=== PATIENT | female | born 1930 | race Hispanic/Latino ===

== ENCOUNTER 2016-12-21 09:15 | Emergency (ER) | payer OTHER, MEDICARE ==
[~2016-12-21 09:15] MED LIST: ALBUTEROL2.5 MG/3 M INH/SOL; AMLODIPINE BESY10 M1 PO; BACTRIM DS 8001 TAB PO; BACTROBAN OINT.22 GM TOP; COUMADIN 5 MG TA5 MG PO; HYDRODIURIL 2525 MG PO; LEVEMIR FL100 UNIT/1 SC; MIRALAX17 GM PO; MOXIFLOXACIN H400 M1 PO; NOVAPLUS FE50 MCG/HR TOP; NOVOLOG100 UNIT/2 SC; NYSTOP100000 U/G TOP; OSTEO BI-FLEX1 EACH PO; PERCOCET 325 MG1 TAB PO; POTASSIUM CHLO10 ME1 PO; PRILOSEC40 MG PO; TRAZODONE50 MG PO; VITAMIN D31000 UNI1 PO; ZOFRAN 8MG8 MG PO; ZOFRAN ODT4 MG SL; ZYRTEC10 M3 PO
--- NOTE | 2016-12-21 09:19 | ED GI/GU/ABDOMINAL COMPLAINT ---
History of Present Illness General Chief Complaint: Abdominal Pain/Flank Pain Stated Complaint: BIBA, ABD PAIN X 4 DAYS Source: patient, family Exam Limitations: no limitations Allergies Coded Allergies: No Known Allergies (12/21/16) Reconcile Medications Albuterol Sulfate 3 ML NEB 1 Vial PO TID-4XDAILY DYSPNEA (Reported) Amlodipine Besylate (Amlodipine) 10 MG TABLET 1 TAB PO DAILY HEART/BP ( Reported) Cetirizine Hydrochloride (Zyrtec) 10 MG TAB 1 TAB PO DAILY SUPPLEMENT ( Reported) Cholecalciferol (Vitamin D3) 1,000 UNIT TABLET 1,000 IU PO DAILY VITAMIN D SUPPLEMET (Reported) Chondroitin Sulfate/Glucosam (Osteo Bi-Flex 200 MG-250 MG) 1 TAB TAB 1 TAB PO DAILY SUPPLEMENT (Reported) Fentanyl 50 MCG/HOUR PATCH.TD72 1 PAT TOP Q3D PAIN (Reported) Hydrochlorothiazide (Hydrodiuril 25 MG Tab) 25 MG TABLET 1 TAB PO DAILY DIURETIC (Reported) Insulin Aspart, Recombinant (Novolog) 100 U/ML SHILO 0 UNITS SC TIDAC GLUCOSE CONTROL (Reported) BLOOD SUGAR # OF UNITS < 80 NONE 80-150 NONE 151-200 4 UNITS 201-250 6 UNITS 251-300 8 UNITS 301-350 10 UNITS 351-400 12 UNITS >400 14 UNITS and call MD Insulin Detemir (Levemir Flextouch) 100 UNIT/ML (3 ML) INSULN.PEN 14 UNITS SC BID DIABETES (Reported) MOXIFLOXACIN HCL (Moxifloxacin HCl) 400 MG TABLET 1 TAB PO DAILY BRONCHITIS Nitrofurantoin Monohyd/M-Cryst (Macrobid 100 MG Capsule) 100 MG CAPSULE 1 CAP PO BID uti with food Nystatin (Nystop) 100,000 UNIT/GRAM POWDER 1 RAZIA TOP AD ANTI-FUNGAL (Reported ) Omeprazole (Prilosec) 40 MG ECC 1 CAP PO DAILY AC GI (Reported) Ondansetron (Zofran 8MG) 8 MG TABLET 1 TAB PO Q8 N/V (Reported) Ondansetron (Zofran Odt) 4 MG TAB.RAPDIS 1 TAB SL Q8HR PRN NAUSEA OXYCODONE HCL/ACETAMINOPHEN (Percocet 10-325 MG Tablet) 325 MG/10 MG TAB 1 TAB PO TID PAIN (Reported) Polyethylene Glycol 3350 (Miralax) 17 GRAM/DOSE POWDER 17 GM PO DAILY CONSTIPATION (Reported) mix with water, juice, soda, coffee or tea Potassium Chloride 10 MEQ TABLET.ER 1 TAB PO DAILY SUPPLEMENT (Reported) TRAZODONE HCL (Trazodone HCl) 50 MG TABLET 1 TAB PO QPM SLEEP (Reported) Warfarin Sodium (Coumadin) 5 MG TABLET 1 TAB PO AD BLOOD THINNER (Reported) Triage Nurses Notes Reviewed? yes ? N Is pt currently ? No Onset: Gradual Duration: worse persistent since (OVER A WEEK) Timing: recent history Quality/Severity: cramping, moderate Location: epigastric Radiation: no radiation Activities at Onset: none Prior Abdominal Problems: similar symptoms Past Sexual History: Unobtainable at this time Sexually Active: No No Modifying Factors: none HPI: Patient is an 86-year-old female presenting to the emergency department with chief complaint of worsening abdominal pain over the past 1 week. Pain is located in the upper part of the abdomen. It's been constant. Denies any nausea or vomiting. Per the family member she always has a decreased appetite. She's been drinking fluids. Her last bowel movement was yesterday but she feels constipated. Denies any fevers or chills. No sick contacts. Denies recent antibiotic use. Per the family member she is bedbound and does not ambulate. She gets transferred from the bed to a wheelchair at times. Denies any urinary frequency or dysuria. No hematuria. The sister is unsure exactly what medical problems the patient has. Unsure exactly what the patient takes daily for medications. Also reporting a cough. (CARLOS ENRIQUE ONTIVEROS,STEFANY) Vital Signs & Intake/Output Vital Signs & Intake/Output Vital Signs Date Time Temp Pulse Resp B/P B/P Pulse O2 O2 Flow FiO2 Mean Ox Delivery Rate 12/21 1517 97.0 80 15 169/70 96 Nasal 2.0L Cannula 12/21 1423 97.7 84 15 189/73 94 Nasal 2.0L Cannula 12/21 1227 97.2 85 18 158/69 98 Nasal 3.0L Cannula 12/21 1004 Nasal 2.0L Cannula 12/21 0920 97.4 89 15 169/67 90 Room Air Room Air Past History Travel History Traveled to [place] past 21 day No Medical History Any Pertinent Medical History? see below for history Cardiovascular: hypertension Respiratory: asthma Musculoskeletal: osteoarthritis Endocrine: diabetes Blood Disorders: DVT History of MRSA: No History of VRE: No History of CDIFF: No Influenza Vaccine: 05/02/13 Surgical History Surgical History: non-contributory Psychosocial History Who do you live with Spouse Services at Home Home Health Aide, Occupational Therapy, Physical Therapy What is your primary language Upper Sorbian Family History Family History, If Any: Relation not specified for: No family history of disorders Hx Contributory? No (STEFANY LEUNG) Review of Systems Review of Systems Constitutional: Reports: no symptoms. Comments Review of systems: See HPI, All other systems negative. Constitutional, no chills fever or weight loss HEENT: No visual changes no sore throat no congestion Cardiovascular: No chest pain ,palpitation , orthopnea or ankle swelling Skin, no jaundice no rashes Respiratory: No dyspnea cough sputum or hemoptysis GI: No nausea no vomiting : No dysuria No hematuria Muscle skeletal: no back pain, no neck pain, Neurologic: No numbness no confusion Psych: No stress anxiety or depression,. Heme/endocrine: No bruising no bleeding no polyuria or polydipsia Immunology: No splenectomy or history of AIDS (STEFANY LEUNG) Physical Exam Physical Exam General Appearance: well developed/nourished, no apparent distress, alert, awake , comfortable Gastrointestinal: normal bowel sounds, soft, tenderness Comments: Well-developed well-nourished person in no acute distress HEENT: Pupils equally round and reactive to light and accommodation. Nose is atraumatic. External auditory canal and Tympanic membranes clear. Pharynx normal. No swelling or edema. Moist oral mucosa. Neck: Supple, no lymphadenopathy, normal range of motion without pain or tenderness Back: Nontender, no CVA tenderness. Cardiovascular: Regular rate and rhythms no murmurs rubs or gallops, normal JVP Respiratory: Chest nontender. No respiratory distress.breath sounds are diminished to auscultation bilaterally at the bases. Abdomen: Soft, obese, tender to palpation in the upper right and upper left quadrant and epigastric region, no rebound or guarding ,nondistended, no appreciable organomegaly. Normal bowel sounds. No ascites Extremity: No edema, nontender to palpation over bilateral calves. Pedal pulses are 2+ bilaterally. Neuro: Alert oriented x3 Skin: No appreciable rash on exposed skin, skin is warm and dry. Psych: Mood and affect is normal, memory and judgment is normal. Core Measures ACS in differential dx? Yes Severe Sepsis Present: No Septic Shock Present: No (CARLOS ENRIQUE ONTIVEROS,STEFANY) Progress Differential Diagnosis: pancreatitis, ACS, gastritis, gastroenteritis, constipation, urinary tract infection Diagnostic Imaging: Viewed by Me: CT Scan. Discussed w/RAD: CT Scan. Radiology Impression: PATIENT: KEVIN PALOMO PRESENT AGE: 86 PATIENT ACCOUNT NO: [id number] : 29 LOCATION: ER ORDERING PHYSICIAN: STEFANY ONTIVEROS SERVICE DATE: 12/21/16 EXAM TYPE: CAT - CT ABD & PELVIS W IV CONTRAST EXAMINATION: CT ABDOMEN AND PELVIS WITH CONTRAST CLINICAL INFORMATION: Abdominal pain. Constipation. Rule out small bowel obstruction. COMPARISON: 11/17/2014 TECHNIQUE: Multidetector volumetric imaging was performed of the abdomen and pelvis before and after the IV administration of 95 mL of Optiray 320 intravenous contrast. Sagittal and coronal reformatted images were obtained on the technologist's workstation. DLP: 824 mGy-cm FINDINGS : LUNG BASES: There is mild dependent atelectasis. Mild bronchiectasis is present in the right lower lobe. Small pericardial effusion. LIVER, GALLBLADDER, AND BILIARY TREE: Dystrophic calcifications within the liver near the falciform ligament may correspond to prior granulomatous disease. No suspicious hepatic lesions. Liver is normal in size and contour. Cholelithiasis is present in the gallbladder. The gallbladder is otherwise unremarkable without gallbladder wall thickening, or obvious pericholecystic inflammatory changes. PANCREAS: Mildly atrophic. No acute findings. SPLEEN: Unremarkable. ADRENAL GLANDS: Unremarkable KIDNEYS AND URETERS: Multiple bilateral exophytic water density renal cysts are present. No suspicious soft tissue nodularity is identified. There are a few smaller subcentimeter cysts which are too small to characterize. Two 2 mm calculi are present in the right kidney. No hydronephrosis. No left-sided renal calculi. Ureters are normal in appearance without hydroureter or ureterolithiasis. BLADDER: Unremarkable. GASTROINTESTINAL TRACT: Stomach, small bowel, and colon are normal in caliber. No bowel wall thickening is identified. There are a few colonic diverticula. No acute diverticulitis. Appendix is not seen, though there are no secondary findings of acute appendicitis. No intraperitoneal free fluid or free air. Stool volume is normal. A rounded 2 cm nodular fat density structure with a thin peripheral rim within the right anterior intraperitoneal fat on image 64/97 of series 2 likely corresponds to a previously focus of infarcted omental fat. ABDOMINAL WALL: Tiny fat-containing umbilical hernia. No bowel involvement. Findings of prior ventral abdominal incision are present anteriorly. LYMPH NODES: Normal. VASCULAR: Calcific atherosclerosis is present in the abdominal aorta and its branch vessels, most notably at the ostia of the branch vessels. No aneurysmal dilatation. PELVIC VISCERA: Uterus and ovaries are surgically absent. OSSEOUS STRUCTURES: Moderate multilevel degenerative disc disease and facet arthropathy are present in the lumbar spine. No acute osseous abnormalities are identified. IMPRESSION: 1. No acute intra-abdominal or intrapelvic abnormalities. No evidence of small bowel obstruction. Stool volume is normal. 2. A few colonic diverticula. No acute diverticulitis. 3. Cholelithiasis. No CT findings of acute cholecystitis. 4. Right nephrolithiasis. No evidence of obstructive uropathy. 5. 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 CXR Impression: PATIENT: KEVIN PALOMO PRESENT AGE: 86 PATIENT ACCOUNT NO: [id number] : 29 LOCATION: [facility] ORDERING PHYSICIAN: STEFANY ONTIVEROS SERVICE DATE: 12/21/16 EXAM TYPE: RAD - XRY- PORTABLE CHEST XRAY EXAMINATION: XR PORTABLE CHEST CLINICAL INFORMATION: Wheezing. Evaluate for pneumonia. COMPARISON: CXR from 12/27/2013. TECHNIQUE: Portable AP view of the chest was obtained. FINDINGS: Patient has a large body habitus and lungs are hypoinflated. As a result, the lower lobe/bases are suboptimally evaluated. There is no evidence of pulmonary edema or pleural effusion. No overt consolidation. Cardiac silhouette is chronically enlarged and central pulmonary vessels are prominent but unchanged compared to 12/06/2014. The visualized bones are intact. IMPRESSION: 1. Evaluation of the lungs is suboptimal due to patient body habitus and hypoinflation. No overt pneumonia. No pleural effusion. 2. Stable cardiomegaly. Initial ED EKG: sinus rhythm at 90 bpm with atrial premature complex Comments: Patient family members informed of all lab results and imaging study results patient has a small UTI. Patient seen and evaluated by Dr. menon agrees with plan. Patient will be transferred back home via ambulance. (CARLOS ENRIQUE ONTIVEROS,STEFANY) Plan of Care: Orders Procedure Date/time Status Add-on Test (ER Only) 12/21 1326 Active TROPONIN LEVEL 12/21 105 Complete Telemetry/Coal Chemist 12/21 918 Active URINALYSIS 12/21 918 Complete LIPASE 12/21 918 Complete LACTIC ACID 12/21 918 Complete COMPREHENSIVE METABOLIC PANEL 12/21 918 Complete CBC WITHOUT DIFFERENTIAL 12/21 918 Complete AMYLASE 12/21 918 Complete EKG 12/21 918 Active Laboratory Tests 12/21/16 1219: Lactic Acid Cancelled 12/21/16 1110: Urine Color YEL, Urine Clarity HAZY H, Urine pH 7.5, Ur Specific [place] 1.015, Urine Protein 30 H, Urine Ketones NEG, Urine Nitrite NEG, Urine Bilirubin NEG, Urine Urobilinogen 0.2, Ur Leukocyte Esterase SMALL H, Ur Microscopic SEDIMENT EXAMINED, Urine RBC 1-3, Urine WBC 15-25 H, Ur Epithelial Cells FEW, Urine Bacteria FEW H, Hyaline Casts RARE H, Urine Mucus RARE, Micro UA Comment MORE INFO: H, Urine Hemoglobin TRACE-INTACT, Urine Glucose NEG 12/21/16 1057: Anion Gap 8, Estimated GFR > 60, BUN/Creatinine Ratio 14.3, Glucose 189 H, Lactic Acid 0.8, Calcium 8.8, Total Bilirubin 1.1, AST 18, ALT 28, Alkaline Phosphatase 54, Troponin I < 0.01, Total Protein 6.8, Albumin 3.8, Globulin 3.0, Albumin/Globulin Ratio 1.3, Amylase < 30 L, Lipase 20 L 12/21/16 0930: CBC w Diff NO MAN DIFF REQ, RBC 4.14 L, MCV 85.0, MCH 28.5, RDW 22.1 H, MPV 9.5, Gran % 73.7, Lymphocytes % 20.9, Monocytes % 4.0, Eosinophils % 1.1, Basophils % 0.3, Absolute Granulocytes 7.0 H, Absolute Lymphocytes 2.0, Absolute Monocytes 0.4, Absolute Eosinophils 0.1, Absolute Basophils 0, PUBS MCHC 33.5 Departure Departure Time of Disposition: 1443 Disposition: HOME OR SELF CARE Condition: Stable Clinical Impression Primary Impression: Abdominal pain Qualifiers: Abdominal location: generalized Qualified Code: R10.84 - Generalized abdominal pain Secondary Impressions: Cough Urinary tract infection Qualifiers: Urinary tract infection type: site unspecified Hematuria presence: without hematuria Qualified Code: N39.0 - Urinary tract infection, site not specified Referrals: ALYCIA KEITH,ADRIANA Medrano (PCP/Family) Additional Instructions: Follow-up with your primary care physician call to make an appointment. Increase fluids. Continue daily medications as previously prescribed. Take previously prescribed to help with urinary tract infection. Departure Forms: Customer Survey General Discharge Information Prescriptions: Current Visit Scripts Nitrofurantoin Monohyd/M-Cryst (Macrobid 100 MG Capsule) 1 CAP PO BID #14 CAP with food (STEFANY LEUNG) PA/KLYSTROM TUBE TESTER Co-Sign Statement Statement: ED Attending supervision documentation- [X] I saw and evaluated the patient. I have also reviewed all the pertinent lab results and diagnostic results. I agree with the findings and the plan of care as documented in the PA's/KLYSTROM TUBE TESTER's documentation. [] I have reviewed the ED Record and agree with the PA's/KLYSTROM TUBE TESTER's documentation. [] Additions or exceptions (if any) to the PAs/KLYSTROM TUBE TESTER's note and plan are summarized below: [] (EZEQUIEL KEITH,BERTO Peralta)
[2016-12-21 09:48] LABS: ABSOLUTE BASOPHIL COUNT 0 /CUMM (0.0-0.2); ABSOLUTE EOSINOPHIL COUNT 0.1 /CUMM (0.0-0.7); ABSOLUTE MONOCYTE COUNT 0.4 /CUMM (0.10-0.60); BASOPHIL % 0.3 % (0.0-2.0); EOSINOPHIL % 1.1 % (0-5); GRANULOCYTE % 73.7 % (42.2-75.2); HEMATOCRIT 35.2 % (37-47); MEAN CORPUSCULAR HGB 28.5 PG (27.0-31.0); MEAN CORPUSCULAR HGB CONC 33.5 G/DL (33.0-37.0); MEAN PLATELET VOLUME 9.5 FL (7.4-10.4); PLATELET COUNT 266 /CUMM (130-400); RBC DISTRIBUTION WIDTH 22.1 % (11.5-14.5); RED BLOOD CELL CT 4.14 /CUMM (4.20-5.40); WHITE BLOOD CELL COUNT 9.6 /CUMM (4.8-10.8)
--- NOTE | 2016-12-21 11:12 | RADIOLOGY REPORT ---
EXAMINATION: XR PORTABLE CHEST CLINICAL INFORMATION: Wheezing. Evaluate for pneumonia. COMPARISON: CXR from 12/27/2013. TECHNIQUE: Portable AP view of the chest was obtained. FINDINGS: Patient has a large body habitus and lungs are hypoinflated. As a result, the lower lobe/bases are suboptimally evaluated. There is no evidence of pulmonary edema or pleural effusion. No overt consolidation. Cardiac silhouette is chronically enlarged and central pulmonary vessels are prominent but unchanged compared to 12/06/2014. The visualized bones are intact. IMPRESSION: 1. Evaluation of the lungs is suboptimal due to patient body habitus and hypoinflation. No overt pneumonia. No pleural effusion. 2. Stable cardiomegaly.
--- NOTE | 2016-12-21 13:11 | CT SCAN REPORT ---
EXAMINATION: CT ABDOMEN AND PELVIS WITH CONTRAST CLINICAL INFORMATION: Abdominal pain. Constipation. Rule out small bowel obstruction. COMPARISON: 11/17/2014 TECHNIQUE: Multidetector volumetric imaging was performed of the abdomen and pelvis before and after the IV administration of 95 mL of Optiray 320 intravenous contrast. Sagittal and coronal reformatted images were obtained on the technologist's workstation. DLP: 824 mGy-cm FINDINGS: LUNG BASES: There is mild dependent atelectasis. Mild bronchiectasis is present in the right lower lobe. Small pericardial effusion. LIVER, GALLBLADDER, AND BILIARY TREE: Dystrophic calcifications within the liver near the falciform ligament may correspond to prior granulomatous disease. No suspicious hepatic lesions. Liver is normal in size and contour. Cholelithiasis is present in the gallbladder. The gallbladder is otherwise unremarkable without gallbladder wall thickening, or obvious pericholecystic inflammatory changes. PANCREAS: Mildly atrophic. No acute findings. SPLEEN: Unremarkable. ADRENAL GLANDS: Unremarkable KIDNEYS AND URETERS: Multiple bilateral exophytic water density renal cysts are present. No suspicious soft tissue nodularity is identified. There are a few smaller subcentimeter cysts which are too small to characterize. Two 2 mm calculi are present in the right kidney. No hydronephrosis. No left-sided renal calculi. Ureters are normal in appearance without hydroureter or ureterolithiasis. BLADDER: Unremarkable. GASTROINTESTINAL TRACT: Stomach, small bowel, and colon are normal in caliber. No bowel wall thickening is identified. There are a few colonic diverticula. No acute diverticulitis. Appendix is not seen, though there are no secondary findings of acute appendicitis. No intraperitoneal free fluid or free air. Stool volume is normal. A rounded 2 cm nodular fat density structure with a thin peripheral rim within the right anterior intraperitoneal fat on image 64/97 of series 2 likely corresponds to a previously focus of infarcted omental fat. ABDOMINAL WALL: Tiny fat-containing umbilical hernia. No bowel involvement. Findings of prior ventral abdominal incision are present anteriorly. LYMPH NODES: Normal. VASCULAR: Calcific atherosclerosis is present in the abdominal aorta and its branch vessels, most notably at the ostia of the branch vessels. No aneurysmal dilatation. PELVIC VISCERA: Uterus and ovaries are surgically absent. OSSEOUS STRUCTURES: Moderate multilevel degenerative disc disease and facet arthropathy are present in the lumbar spine. No acute osseous abnormalities are identified. IMPRESSION: 1. No acute intra-abdominal or intrapelvic abnormalities. No evidence of small bowel obstruction. Stool volume is normal. 2. A few colonic diverticula. No acute diverticulitis. 3. Cholelithiasis. No CT findings of acute cholecystitis. 4. Right nephrolithiasis. No evidence of obstructive uropathy. 5. 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
[2016-12-21] MEDS ORDERED: MACROBID 100 M100 MG PO (14:48)
[2016-12-21 15:17] VITALS: BP 169/70
== END 2016-12-21 16:45 ==
LOC: ERH 09:15
PROVIDERS: Physician Assistant
DX: N39.0 Urinary tract infection, site not specified (principal); R10.13 Epigastric pain; E11.9 Type 2 diabetes mellitus without complications; Z79.4 Long term (current) use of insulin; I10 Essential (primary) hypertension; Z86.718 Personal history of other venous thrombosis and embolism; R05 Cough; Z79.01 Long term (current) use of anticoagulants
CPT/HCPCS: 1263; 74177; 81001; 93005; 93010; 96372; 96374

== ENCOUNTER 2016-12-23 21:38 | Emergency (ER) | payer OTHER, MEDICARE ==
[~2016-12-23] VITALS: Ht 142.2 cm; Wt 90.7 kg
[~2016-12-23 21:38] MED LIST changes: +MACROBID 100 M100 MG PO
--- NOTE | 2016-12-23 21:57 | ED GENERAL ADULT ---
History of Present Illness General Chief Complaint: Abdominal Pain/Flank Pain Stated Complaint: BIBA ABD PAIN X 1 DAY Source: patient, family, old records Exam Limitations: no limitations Vital Signs & Intake/Output Vital Signs & Intake/Output Vital Signs Date Time Temp Pulse Resp B/P B/P Pulse O2 O2 Flow FiO2 Mean Ox Delivery Rate 12/23 2148 89 20 121/69 96 Room Air ED Intake and Output 12/24 0000 12/23 1200 Intake Total 0 Output Total Balance 0 Intake, Oral 0 Patient 200 lb Weight Weight Estimated Measurement Method Allergies Coded Allergies: No Known Allergies (12/21/16) Reconcile Medications Albuterol Sulfate 2.5 MG/3 ML (0.083 %) VIAL.NEB 1 Vial INH/SHILO TID RESPIRATORY (Reported) Amlodipine Besylate 10 MG TABLET 1 TAB PO DAILY BP (Reported) Cetirizine HCl (Zyrtec) 10 MG TABLET 1 TAB PO DAILY ALLERGIES (Reported) Cholecalciferol (Vitamin D3) (Vitamin D3) 1,000 UNIT CAPSULE 1 CAP PO DAILY SUPPLEMENT (Reported) Fentanyl 75 MCG/HOUR PATCH.TD72 1 PAT TOP Q3D PAIN (Reported) Glucosamine HCl/Chondr Tellez A Na (Osteo Bi-Flex Caplet) (Unknown Strength) TABLET (Unknown Dose) PO DAILY SUPPLEMENT (Reported) Hydrochlorothiazide 25 MG TABLET 1 TAB PO DAILY DIURETIC/BP (Reported) Insulin Aspart (Novolog) 100 UNIT/ML VIAL DM (Reported) Insulin Detemir (Levemir Flextouch) 100 UNIT/ML (3 ML) INSULN.PEN 22 UNITS SC BID DM (Reported) Ketoconazole 2 % CREAM..G. 1 RAZIA TOP PRN SKIN (Reported) apply to affected area(s) Lactobacillus Acidophilus (Probiotic) (Unknown Strength) CAPSULE (Unknown Dose ) PO DAILY PROBIOTIC (Reported) Nitrofurantoin Monohyd/M-Cryst (Macrobid 100 MG Capsule) 100 MG CAPSULE 1 CAP PO BID uti with food Nystatin (Nyamyc) 100,000 UNIT/GRAM POWDER 1 RAZIA TOP DAILY SKIN FOLDS ( Reported) Omeprazole 40 MG CAPSULE.DR 1 CAP PO DAILY GI (Reported) Oxycodone HCl/Acetaminophen (Endocet 10-325 MG Tablet) 10 MG-325 MG TABLET 1 TAB PO TID PAIN (Reported) Phenazopyridine HCl (Pyridium) 200 MG TABLET 1 TAB PO TID DYSUIRA Polyethylene Glycol 3350 17 GRAM/DOSE POWDER 17 GM PO DAILY GI (Reported) Potassium Chloride 10 MEQ TAB.ER.PRT 1 TAB PO DAILY SUPPLEMENT (Reported) Trazodone HCl 50 MG TABLET 1 TAB PO QPM SLEEP (Reported) Warfarin Sodium (Coumadin) 6 MG TABLET 1 TAB PO DAILY BLOOD THINNER (Reported ) Triage Note: PT BIBA FROM HOME. PER EMS, PT WAS DIAGNOSED WITH UTI AND SENT HOME WITH ANTIBIOTICS ON FRIDAY. PER PT'S DAUGHTER PT HAS NOT VOIDED ALL DAY AND HAS ABD PAIN. PT'S ABD IS FIRM AND DISTENDED. PER DAUGHTER, PT HAD A BM THIS AM. Triage Nurses Notes Reviewed? yes HPI: Patient brought in by her daughter for evaluation of pelvic pain. Patient was seen here on Friday and diagnosed with UTI. Patient still feels the symptoms of the area tract infection. Positive dysuria. Patient feels that she is not urinating. Patient feels a fullness in her bladder. There is no nausea or vomiting. There is no radiation of the fullness. There are no aggravating or mitigating factors. She rates as moderate on the scalp. Past History Travel History Traveled to [place] past 21 day No Medical History Any Pertinent Medical History? see below for history Cardiovascular: hypertension Respiratory: asthma Musculoskeletal: osteoarthritis Endocrine: diabetes Blood Disorders: DVT History of MRSA: No History of VRE: No History of CDIFF: No Influenza Vaccine: 05/02/13 Surgical History Surgical History: non-contributory Psychosocial History Who do you live with Spouse Services at Home Home Health Aide, Occupational Therapy, Physical Therapy What is your primary language Turkish Tobacco Use: Never used ETOH Use: denies use Illicit Drug Use: denies illicit drug use Family History Family History, If Any: Relation not specified for: No family history of disorders Hx Contributory? No Review of Systems Review of Systems Constitutional: Reports: no symptoms. EENTM: Reports: no symptoms. Respiratory: Reports: no symptoms. Cardiovascular: Reports: no symptoms. GI: Reports: see HPI, abdominal pain. Genitourinary: Reports: see HPI. Musculoskeletal: Reports: no symptoms. Skin: Reports: no symptoms. Neurological/Psychological: Reports: no symptoms. Hematologic/Endocrine: Reports: no symptoms. Immunologic/Allergic: Reports: no symptoms. All Other Systems: Reviewed and Negative Physical Exam Physical Exam General Appearance: well developed/nourished, alert, awake, mild distress Head: atraumatic, normal appearance Eyes: Bilateral: PERRL, EOMI. Ears, Nose, Throat: normal pharynx, normal ENT inspection, hearing grossly normal Neck: normal inspection, supple, full range of motion Respiratory: normal breath sounds, chest non-tender, no respiratory distress, lungs clear Cardiovascular: regular rate/rhythm, normal peripheral pulses Gastrointestinal: normal bowel sounds, soft, non-tender, no organomegaly Back: normal inspection, normal range of motion Extremities: normal inspection, normal capillary refill, normal range of motion, no edema Neurologic/Psych: no motor/sensory deficits, awake, alert, oriented x 3 Skin: intact, normal color, warm/dry Core Measures ACS in differential dx? No CVA/TIA Diagnosis: No Severe Sepsis Present: No Septic Shock Present: No Progress Differential Diagnoses I considered the following diagnoses in my evaluation of the patient: [UTI, bladder spasm, urinary retention] Plan of Care: Orders Procedure Date/time Status Elizabeth, Insertion/Removal/Asses 12/24 2155 Active CULTURE,URINE 12/24 2155 Active URINALYSIS 12/24 2155 Complete TROPONIN LEVEL 12/24 2155 Complete COMPREHENSIVE METABOLIC PANEL 12/24 2155 Complete CBC WITHOUT DIFFERENTIAL 12/24 2155 Complete EKG 12/24 2155 Active Laboratory Tests 12/23/16 2306: Urine Color YEL, Urine Clarity CLEAR, Urine pH 6.5, Ur Specific [place] 1.010, Urine Protein TRACE H, Urine Ketones NEG, Urine Nitrite NEG, Urine Bilirubin NEG, Urine Urobilinogen 0.2, Ur Leukocyte Esterase SMALL H, Ur Microscopic SEDIMENT EXAMINED, Urine RBC RARE, Urine WBC 3-5 H, Ur Epithelial Cells RARE, Urine Bacteria RARE H, Urine Mucus FEW, Urine Hemoglobin TRACE-INTACT, Urine Glucose NEG 12/23/16 2230: Anion Gap 12, Estimated GFR > 60, BUN/Creatinine Ratio 13.8, Glucose 211 H, Calcium 8.7, Total Bilirubin 0.9, AST 21, ALT 29, Alkaline Phosphatase 52, Troponin I < 0.01, Total Protein 6.8, Albumin 3.8, Globulin 3.0, Albumin/ Globulin Ratio 1.3, CBC w Diff NO MAN DIFF REQ, RBC 3.83 L, MCV 85.2, MCH 28.8, RDW 22.6 H, MPV 9.1, Gran % 80.9 H, Lymphocytes % 13.0 L, Monocytes % 5.1, Eosinophils % 0.7, Basophils % 0.3, Absolute Granulocytes 8.0 H, Absolute Lymphocytes 1.3, Absolute Monocytes 0.5, Absolute Eosinophils 0.1, Absolute Basophils 0, PUBS MCHC 33.8 Microbiology 12/23 2306 URINE ROUT: Urine Culture - RECD Initial ED EKG: none Comments: Elizabeth obtained 280 mL of urine. Departure Departure Disposition: HOME OR SELF CARE Condition: Stable Clinical Impression Primary Impression: UTI (urinary tract infection) Secondary Impressions: Bladder spasms Referrals: ALYCIA KEITH,ADRIANA Medrano (PCP/Family) Additional Instructions: CONTINUE THE ANTIBIOTICS TAKE PYRIDIUM PRESCRIBED. IT CELINA TURN YOUR URINE AND TEARS ORANGE. RETURN FOR ANY CONCERNS Departure Forms: Customer Survey General Discharge Information Prescriptions: Current Visit Scripts Phenazopyridine HCl (Pyridium) 1 TAB PO TID #9 TAB Critical Care Note Critical Care Note Critical Care Time: non-applicable
[2016-12-23] MEDS ORDERED: ENDOCET 10-3251 EACH PO (22:20)
[2016-12-23] MEDS ORDERED: FENTANYL1 EAC4 TOP (22:21)
[2016-12-23] MEDS ORDERED: COUMADIN6 M1 PO (22:21)
[2016-12-23] MEDS ORDERED: POTASSIUM CHLO10 ME5 PO (22:21)
[2016-12-23] MEDS ORDERED: TRAZODONE HCL50 M1 PO (22:21)
[2016-12-23] MEDS ORDERED: OMEPRAZOLE40 M1 PO (22:21)
[2016-12-23] MEDS ORDERED: KETOCONAZOLE15 GM TOP (22:22)
[2016-12-23] MEDS ORDERED: NYAMYC15 GM TOP (22:22)
[2016-12-23] MEDS ORDERED: HYDROCHLOROTHIA25 M1 PO (22:23)
[2016-12-23] MEDS ORDERED: POLYETHYLENE G255 GM PO (22:23)
[2016-12-23] MEDS ORDERED: PROBIOTIC1 EACH PO (22:26)
[2016-12-23 22:49] LABS: ABSOLUTE BASOPHIL COUNT 0 /CUMM (0.0-0.2); ABSOLUTE EOSINOPHIL COUNT 0.1 /CUMM (0.0-0.7); ABSOLUTE LYMPH COUNT 1.3 /CUMM (1.2-3.4); ABSOLUTE MONOCYTE COUNT 0.5 /CUMM (0.10-0.60); BASOPHIL % 0.3 % (0.0-2.0); EOSINOPHIL % 0.7 % (0-5); GRANULOCYTE % 80.9 % (42.2-75.2); HEMATOCRIT 32.6 % (37-47); MEAN CORPUSCULAR HGB 28.8 PG (27.0-31.0); MEAN CORPUSCULAR HGB CONC 33.8 G/DL (33.0-37.0); MEAN CORPUSCULAR VOLUME 85.2 FL (81.0-99.0); MEAN PLATELET VOLUME 9.1 FL (7.4-10.4); PLATELET COUNT 281 /CUMM (130-400); RBC DISTRIBUTION WIDTH 22.6 % (11.5-14.5); RED BLOOD CELL CT 3.83 /CUMM (4.20-5.40); WHITE BLOOD CELL COUNT 9.9 /CUMM (4.8-10.8)
[2016-12-23] MEDS ORDERED: PYRIDIUM200 M1 PO (23:54)
[2016-12-24 01:02] VITALS: BP 163/70
== END 2016-12-24 01:07 ==
LOC: ERH 21:38
PROVIDERS: Emergency Medicine
DX: N39.0 Urinary tract infection, site not specified (principal); N32.89 Other specified disorders of bladder
CPT/HCPCS: 81001; 87086; 93005; 93010